=== PATIENT | male | born 1950 | race Two or more races ===

== ENCOUNTER 2021-02-16 11:42 | Inpatient (IN) | payer MEDICARE, OTHER ==
[~2021-02-16] VITALS: Ht 172.7 cm; Wt 77.4 kg
[2021-02-16 03:00] VITALS: BP 100/62
[2021-02-16] MEDS ORDERED: SODIUM CHLORIDE 0.9% 1,000 ML IV ONE ×2 (12:30→21:30)
[2021-02-16 13:38] LABS: Eosinophils # (auto) 0 10 ^3/uL (0-0.8); Eosinophils % (auto) 0.3 % (0.0-7.0); Hemoglobin 9.6 g/dL (13.5-17.5); Lymphocytes # (auto) 1.5 10 ^3/uL (0.4-5.4); Lymphocytes % (auto) 15.5 % (10.0-50.0); Neutrophils # (auto) 7.5 10 ^3/uL (1.6-8.6); Red Cell Distribution Width 18.3 % (11.8-14.3); White Blood Cell 9.9 10^3/uL (4.4-10.8)
[2021-02-16 13:39] LABS: Basophils # (auto) 0 10 ^3/uL (0-0.2); Basophils % (auto) 0.5 % (0.0-2.0); Mean Corpuscular Hemoglobin 27.3 pg (28.0-32.0); Mean Corpuscular Hgb Conc. 33.1 g/dL (32.0-36.0); Mean Corpuscular Volume 82.4 fL (80.0-100.0); Monocytes # (auto) 0.8 10 ^3/uL (0-1.3); Monocytes % (auto) 7.9 % (0.0-12.0); Neutrophils % (auto) 75.8 % (37.0-80.0); Red Blood Cells 3.52 10^6/uL (4.5-5.90)
[2021-02-16 13:42] LABS: Albumin 2.5 g/dL (3.4-5.0); Calcium 8.8 mg/dL (8.5-10.1); INR 1.21 (0.9-1.15); Magnesium 2.6 mg/dL (1.6-2.6); Potassium 4.2 mmol/L (3.5-5.1)
[2021-02-16 13:48] LABS: BUN/Creatinine Ratio 44.6; Bilirubin, Total 4.1 mg/dL (0.2-1.0); Total Protein 6.7 g/dL (6.4-8.2)
[2021-02-16] MEDS ORDERED: IOHEXOL 300 MG/ML 100ML BOTTLE IJ ONE (16:39)
[2021-02-16 19:00] LABS: Urine Bacteria NONE SEEN /hpf (None Seen); Urine Blood Negative /uL (Negative); Urine Specific Gravity 1.025 (1.001-1.035); Urine WBC 2 /hpf (0 - 3)
[2021-02-16] MEDS ORDERED: ONDANSETRON HCL 4 MG/2 ML VIAL IV PRN (21:30)
[2021-02-16] MEDS ORDERED: CIPROFLOXACIN 400MG/200ML 200 ML IV ONE (21:30)
[2021-02-16] MEDS ORDERED: metroNIDAZOLE 500MG/100ML 100 ML IV ONE (21:30)
[2021-02-16] MEDS ORDERED: fentaNYL CITRATE 100 MCG/2 ML VL IV PRN (21:30)
[2021-02-17] MEDS ORDERED: ONDANSETRON HCL 4 MG/2 ML VIAL IV PRN (01:15)
[2021-02-17] MEDS: SODIUM CHLORIDE 0.9% 1,000 ML IV SCH (01:15)
[2021-02-17] MEDS ORDERED: MORPHINE SULFATE 4 MG/ML SYR/VIAL IV PRN (01:15)
[2021-02-17 05:00] VITALS: BP 113/61
[2021-02-17 09:00] VITALS: BP 108/61
[2021-02-17] MEDS ORDERED: cefTRIAXone 1GM/50ML D5W 50 ML IV SCH (09:00)
[2021-02-17] MEDS: PANTOPRAZOLE 40 MG/10 ML VIAL INJ IV SCH (10:00)
[2021-02-17] MEDS ORDERED: HYDROmorphone HCL 2 MG/ML VL IV PRN (11:30)
[2021-02-17 14:58] LABS: Hepatitis A Ab IgM Negative
[2021-02-17 15:10] LABS: Hepatitis B Core IgM Negative
[2021-02-17 15:14] LABS: Hepatitis C Antibody Negative (Negative)
[2021-02-17 17:00] VITALS: BP 107/73
[2021-02-17 22:00] VITALS: BP 110/60
[2021-02-18] MEDS: SODIUM CHLORIDE 0.9% 1,000 ML IV SCH ×2 (03:55→18:29)
[2021-02-18 06:57] LABS: Basophils # (auto) 0 10 ^3/uL (0-0.2); Eosinophils # (auto) 0.2 10 ^3/uL (0-0.8); Lymphocytes # (auto) 1.1 10 ^3/uL (0.4-5.4); Nucleated Red Blood Cells % 0.1 %
[2021-02-18 07:00] LABS: Basophils % (auto) 1.1 % (0.0-2.0); Eosinophils % (auto) 4.1 % (0.0-7.0); Lymphocytes % (auto) 24.9 % (10.0-50.0); Mean Corpuscular Hemoglobin 29.1 pg (28.0-32.0); Mean Corpuscular Hgb Conc. 34.5 g/dL (32.0-36.0); Mean Corpuscular Volume 84.5 fL (80.0-100.0); Monocytes # (auto) 0.4 10 ^3/uL (0-1.3); Monocytes % (auto) 9.8 % (0.0-12.0); Neutrophils # (auto) 2.7 10 ^3/uL (1.6-8.6); Neutrophils % (auto) 60.1 % (37.0-80.0); Red Blood Cells 2.41 10^6/uL (4.5-5.90); White Blood Cell 4.5 10^3/uL (4.4-10.8)
[2021-02-18 07:06] LABS: Albumin 2.1 g/dL (3.4-5.0); BUN/Creatinine Ratio 34.1; Calcium 8.3 mg/dL (8.5-10.1); Potassium 3.9 mmol/L (3.5-5.1)
[2021-02-18 07:09] LABS: Total Protein 5.3 g/dL (6.4-8.2)
[2021-02-18 07:11] LABS: Hematocrit 20.6 % (41.0-53.0)
[2021-02-18 07:12] LABS: Hemoglobin 6.9 g/dL (13.5-17.5)
[2021-02-18 08:50] VITALS: BP 113/65
[2021-02-18 08:57] LABS: Hematocrit 23.3 % (41.0-53.0); Hemoglobin 7.9 g/dL (13.5-17.5)
[2021-02-18] MEDS: PANTOPRAZOLE 40 MG/10 ML VIAL INJ IV SCH (09:00)
[2021-02-18] MEDS ORDERED: LACTULOSE 20Gm/30ML SOLN PO PRN (09:15)
[2021-02-18 13:00] VITALS: BP 109/62
[2021-02-18 16:44] VITALS: BP 110/66
[2021-02-18 22:25] VITALS: BP 109/66
[2021-02-19] VITALS (10 sets, daily range): BP systolic 105–122; BP diastolic 62–73
[2021-02-19] MEDS: SODIUM CHLORIDE 0.9% 1,000 ML IV SCH (05:25)
[2021-02-19 07:56] LABS: Basophils # (auto) 0 10 ^3/uL (0-0.2); Eosinophils # (auto) 0.2 10 ^3/uL (0-0.8); Lymphocytes # (auto) 1.1 10 ^3/uL (0.4-5.4); Monocytes # (auto) 0.5 10 ^3/uL (0-1.3); Monocytes % (auto) 10.3 % (0.0-12.0)
[2021-02-19 07:58] LABS: Basophils % (auto) 0.8 % (0.0-2.0); Eosinophils % (auto) 4.2 % (0.0-7.0); Hematocrit 20.2 % (41.0-53.0); Mean Corpuscular Hemoglobin 28.9 pg (28.0-32.0); Mean Corpuscular Volume 85.1 fL (80.0-100.0); Neutrophils # (auto) 2.7 10 ^3/uL (1.6-8.6); Neutrophils % (auto) 60.7 % (37.0-80.0); Nucleated Red Blood Cells % 0.2 %; Red Blood Cells 2.38 10^6/uL (4.5-5.90); Red Cell Distribution Width 19.3 % (11.8-14.3); White Blood Cell 4.4 10^3/uL (4.4-10.8)
[2021-02-19 08:05] LABS: Potassium 3.8 mmol/L (3.5-5.1)
[2021-02-19 08:10] LABS: BUN/Creatinine Ratio 26.3
[2021-02-19 08:12] LABS: Total Protein 5.1 g/dL (6.4-8.2)
[2021-02-19 08:20] LABS: Hemoglobin 6.9 g/dL (13.5-17.5)
[2021-02-19] MEDS: PANTOPRAZOLE 40 MG/10 ML VIAL INJ IV SCH ×2 (10:17→22:56)
[2021-02-19] MEDS: SUCRALFATE 1 GM/10 ML ORAL SUSP PO SCH ×3 (12:34→22:57)
[2021-02-19 20:31] LABS: Hematocrit 27.6 % (41.0-53.0); Hemoglobin 9.2 g/dL (13.5-17.5)
[2021-02-20 05:00] VITALS: BP 106/49
[2021-02-20 06:02] LABS: Urine Bacteria NONE SEEN /hpf (None Seen); Urine Blood Negative /uL (Negative); Urine Mucus FEW (None Seen); Urine Specific Gravity 1.019 (1.001-1.035); Urine WBC 11 /hpf (0 - 3)
[2021-02-20 06:54] LABS: Basophils # (auto) 0.1 10 ^3/uL (0-0.2); Basophils % (auto) 0.6 % (0.0-2.0); Eosinophils # (auto) 0.2 10 ^3/uL (0-0.8); Eosinophils % (auto) 2.2 % (0.0-7.0); Hematocrit 28.6 % (41.0-53.0); Hemoglobin 9.6 g/dL (13.5-17.5); Lymphocytes # (auto) 1.7 10 ^3/uL (0.4-5.4); Lymphocytes % (auto) 18.5 % (10.0-50.0); Mean Corpuscular Hemoglobin 28.6 pg (28.0-32.0); Mean Corpuscular Hgb Conc. 33.5 g/dL (32.0-36.0); Mean Corpuscular Volume 85.3 fL (80.0-100.0); Monocytes # (auto) 0.6 10 ^3/uL (0-1.3); Monocytes % (auto) 6.8 % (0.0-12.0); Neutrophils # (auto) 6.7 10 ^3/uL (1.6-8.6); Neutrophils % (auto) 71.9 % (37.0-80.0); Nucleated Red Blood Cells % 0.1 %; Red Blood Cells 3.36 10^6/uL (4.5-5.90); White Blood Cell 9.4 10^3/uL (4.4-10.8)
[2021-02-20 07:00] LABS: INR 1.21 (0.9-1.15); Partial Thromboplastin Time 27.9 sec (23.6-33.0)
[2021-02-20] MEDS: SUCRALFATE 1 GM/10 ML ORAL SUSP PO SCH ×4 (07:00→22:15)
[2021-02-20 07:04] LABS: Calcium 8.6 mg/dL (8.5-10.1); Potassium 3.2 mmol/L (3.5-5.1)
[2021-02-20 07:10] LABS: Albumin 2.4 g/dL (3.4-5.0); BUN/Creatinine Ratio 14.7; Bilirubin, Total 4.1 mg/dL (0.2-1.0); Total Protein 6.7 g/dL (6.4-8.2)
[2021-02-20] MEDS ORDERED: POTASSIUM CHL 20 Meq TABLET PO ONE (08:45)
[2021-02-20] MEDS ORDERED: FUROSEMIDE 20 MG/2 ML VIAL IV ONE (08:45)
[2021-02-20] MEDS ORDERED: MIDAZOLAM HCL 5 MG/ML-1ML VIAL ONE (08:53)
[2021-02-20] MEDS ORDERED: LIDOCAINE VISCOUS 2% 15ML UD ONE (08:53)
[2021-02-20] MEDS ORDERED: fentaNYL CITRATE 100 MCG/2 ML VL ONE (08:54)
[2021-02-20] MEDS ORDERED: diphenhdrAMINE HCL 50 MG/1 ML VL ONE (08:54)
[2021-02-20 09:00] VITALS: BP 110/70
[2021-02-20] MEDS: PANTOPRAZOLE 40 MG/10 ML VIAL INJ IV SCH ×2 (09:23→22:15)
[2021-02-20] MEDS ORDERED: TEMAZEPAM 15 MG CAP PO PRN (10:00)
[2021-02-20] MEDS ORDERED: OCTREOTIDE ACETATE 100 MCG in SODIUM CHL 0.9% 50 ML IV ONE (11:15)
[2021-02-20] MEDS ORDERED: MORPHINE SULFATE INJECTION 2 MG/ML SYRG IV PRN (12:00)
[2021-02-20] MEDS ORDERED: NITROGLYCERIN 0.4 MG SL TAB SL PRN (12:00)
[2021-02-20 12:41] VITALS: BP 109/67
[2021-02-20] MEDS: SODIUM CHLOR 0.9% PF (SALINE LOCK) 10ML VIAL/SYR IV SCH ×2 (14:00→22:15)
[2021-02-20] MEDS: OCTREOTIDE ACETATE 500 MCG in SODIUM CHL 0.9% 99 ML IV SCH ×2 (14:57→22:14)
[2021-02-20 17:00] VITALS: BP 124/73
[2021-02-20 22:00] VITALS: BP 107/66
[2021-02-21 05:00] VITALS: BP 111/55
[2021-02-21] MEDS: SODIUM CHLOR 0.9% PF (SALINE LOCK) 10ML VIAL/SYR IV SCH ×3 (06:21→21:46)
[2021-02-21] MEDS: SUCRALFATE 1 GM/10 ML ORAL SUSP PO SCH ×4 (06:26→21:45)
[2021-02-21 06:28] LABS: Basophils # (auto) 0 10 ^3/uL (0-0.2); Basophils % (auto) 0.8 % (0.0-2.0); Eosinophils # (auto) 0.3 10 ^3/uL (0-0.8); Eosinophils % (auto) 5.5 % (0.0-7.0); Hematocrit 26.4 % (41.0-53.0); Hemoglobin 8.8 g/dL (13.5-17.5); Lymphocytes # (auto) 0.9 10 ^3/uL (0.4-5.4); Lymphocytes % (auto) 19.1 % (10.0-50.0); Mean Corpuscular Hemoglobin 28.8 pg (28.0-32.0); Mean Corpuscular Hgb Conc. 33.3 g/dL (32.0-36.0); Mean Corpuscular Volume 86.5 fL (80.0-100.0); Monocytes # (auto) 0.5 10 ^3/uL (0-1.3); Monocytes % (auto) 11.2 % (0.0-12.0); Neutrophils # (auto) 2.9 10 ^3/uL (1.6-8.6); Neutrophils % (auto) 63.4 % (37.0-80.0); Red Blood Cells 3.06 10^6/uL (4.5-5.90); White Blood Cell 4.6 10^3/uL (4.4-10.8)
[2021-02-21 06:30] LABS: BUN/Creatinine Ratio 12.6; Calcium 8.1 mg/dL (8.5-10.1); Potassium 4.2 mmol/L (3.5-5.1)
[2021-02-21 06:33] LABS: Bilirubin, Total 3.2 mg/dL (0.2-1.0); Red Cell Distribution Width 20.1 % (11.8-14.3); Total Protein 5.3 g/dL (6.4-8.2)
[2021-02-21] MEDS: OCTREOTIDE ACETATE 500 MCG in SODIUM CHL 0.9% 99 ML IV SCH ×2 (07:15→17:15)
[2021-02-21] MEDS: PANTOPRAZOLE 40 MG/10 ML VIAL INJ IV SCH ×2 (09:06→21:45)
[2021-02-21 09:27] VITALS: BP 107/75
[2021-02-21 13:06] VITALS: BP 119/80
[2021-02-21 17:05] VITALS: BP 129/77
[2021-02-21] MEDS ORDERED: ALBUMIN 25% 50 ML IV ONE (18:45)
[2021-02-21 21:47] VITALS: BP 120/76
== END 2021-02-21 23:49 | disposition short-term general hospital (02) | DRG 368 ==
LOC: ER 11:42 → OVERFLOW 02-17 01:06 → WEST WING 02-17 02:00 → TELE-WESTW 02-20 12:05
PROVIDERS: ADMIT Nurse Practitioner; ATTEND Internal Medicine
PROC: 0W9G3ZZ Drainage of Peritoneal Cavity, Percutaneous Approach (ICD-10-PCS; 2021-02-17)
PROC: 30233N1 Transfusion of Nonautologous Red Blood Cells into Peripheral Vein, Percutaneous Approach (ICD-10-PCS; 2021-02-19)
PROC: 0DJ08ZZ Inspection of Upper Intestinal Tract, Via Natural or Artificial Opening Endoscopic (ICD-10-PCS; principal; 2021-02-20 10:49)
DX: I85.00 Esophageal varices without bleeding (principal); K83.1 Obstruction of bile duct; I81 Portal vein thrombosis; E43 Unspecified severe protein-calorie malnutrition; D68.9 Coagulation defect, unspecified; K76.6 Portal hypertension; K92.2 Gastrointestinal hemorrhage, unspecified; K86.9 Disease of pancreas, unspecified; K59.00 Constipation, unspecified; K82.8 Other specified diseases of gallbladder; D64.9 Anemia, unspecified; K31.89 Other diseases of stomach and duodenum; Z20.822 Contact with and (suspected) exposure to COVID-19; R59.1 Generalized enlarged lymph nodes; Z68.25 Body mass index [BMI] 25.0-25.9, adult
CPT/HCPCS: 36415; 43235; 70450; 71045; 74176; 74181; 76700; 76942; 80053; 80074; 81001; 82270; 82378; 83605; 83615; 83690; 83735; 83880; 83986; 84154; 84484; 85014; 85018; 85025; 85610; 85730; 86301; 86850; 86900; 86901; 86920; 87040; 87426; 89051; 93005; 96361; 96365; 96367; C9113; G0378; J0696; J2250; J3490